=== PATIENT | male | born 1975 | race Hispanic/Latino ===

== ENCOUNTER 2017-03-29 20:42 | Inpatient (IN) | payer BC, OTHER ==
[2017-03-29 20:48] VITALS: BMI 32.7
--- NOTE | 2017-03-29 21:07 | ED PDOC ---
Arrival/HPI - General Chief Complaint: Psychiatric Evaluation Time Seen by Provider: 03/29/17 20:47 Historian: Patient - History of Present Illness Narrative History of Present Illness (Text): 03/29/17 21:00 Paco Bran is a 41 year old male who presents to the Emergency department transferred from [facility] for depression. Patient was medically cleared at previous institution today and accepted for psychiatric admission. Patient denies any fever, chills, chest pain, shortness of breath, nausea, vomiting, diarrhea, urinary symptoms, back pain, neck pain, headache, dizziness, or any other complaints. Symptom Onset: Gradual Symptom Course: Unchanged Activities at Onset: Light Context: Other (Transferred from [facility]) Past Medical History - Provider Review Nursing Documentation Reviewed: Yes - Infectious Disease Hx of Infectious Diseases: None - Psychiatric Hx Psychophysiologic Disorder: Yes Hx Depression: Yes Hx Substance Use: No - Anesthesia Hx Anesthesia: No Hx Anesthesia Reactions: No Hx Malignant Hyperthermia: No Family/Social History - Physician Review Nursing Documentation Reviewed: Yes Family/Social History: Unknown Family HX Smoking Status: Light Smoker < 10 Cigarettes Daily Hx Alcohol Use: Yes Frequency of alcohol use: Socially Hx Substance Use: No Allergies/Home Meds Allergies/Adverse Reactions: Allergies No Known Allergies Allergy (Unverified 03/29/17 21:01) Review of Systems - Physician Review All systems were reviewed & negative as marked: Yes - Review of Systems Constitutional: Normal. absent: Fevers Eyes: Normal ENT: Normal Respiratory: Normal. absent: SOB, Cough Cardiovascular: Normal. absent: Chest Pain Gastrointestinal: Normal. absent: Abdominal Pain, Diarrhea, Nausea, Vomiting Genitourinary Male: Normal. absent: Dysuria, Frequency, Hematuria, Urinary Output Changes Musculoskeletal: Normal. absent: Back Pain, Neck Pain Skin: Normal. absent: Rash Neurological: Normal. absent: Headache, Dizziness Endocrine: Normal Hemo/Lymphatic: Normal Psychiatric: Normal Physical Exam Vital Signs Reviewed: Yes Vital Signs Temp Pulse Resp BP Pulse Ox 03/29/17 20:52 99.3 F 115 H 18 143/89 98 Temperature: Afebrile Blood Pressure: Normal Pulse: Regular Respiratory Rate: Normal Appearance: Positive for: Well-Appearing, Non-Toxic, Comfortable Pain Distress: None Mental Status: Positive for: Alert and Oriented X 3 - Systems Exam Head: Present: Atraumatic, Normocephalic Pupils: Present: PERRL Extroacular Muscles: Present: EOMI Conjunctiva: Present: Normal Mouth: Present: Moist Mucous Membranes Neck: Present: Normal Range of Motion Respiratory/Chest: Present: Clear to Auscultation, Good Air Exchange. No: Respiratory Distress, Accessory Muscle Use Cardiovascular: Present: Regular Rate and Rhythm, Normal S1, S2. No: Murmurs Abdomen: Present: Normal Bowel Sounds. No: Tenderness, Distention, Peritoneal Signs Back: Present: Normal Inspection Upper Extremity: Present: Normal Inspection. No: Cyanosis, Edema Lower Extremity: Present: Normal Inspection. No: Edema Neurological: Present: GCS=15, CN II-XII Intact, Speech Normal Skin: Present: Warm, Dry, Normal Color. No: Rashes Psychiatric: Present: Alert, Oriented x 3, Normal Insight, Normal Concentration. No: Normal Affect (Flat affect) Medical Decision Making ED Course and Treatment: 03/29/17 21:00 Impression: 41 year old male transferred from [facility] for depression. Differential Diagnosis included but are not limited to: depression Plan: -- Admission to [facility] Progress Notes: Patient was medically cleared at previous institution and accepted for psychiatric admission. Pt will be admitted to [facility] for depression under Dr. Simon's service. - Medication Orders Current Medication Orders: Acetaminophen (Tylenol 325mg Tab) 650 mg PO Q4H PRN PRN Reason: Pain, Mild (1-3) Al Hydrox/Mg Hydrox/Simethicone (Maalox Plus 30 Ml) 30 ml PO DAILY PRN PRN Reason: Upset Stomach Haloperidol (Haldol) 3 mg PO Q6 PRN; Protocol PRN Reason: Psychosis Last Admin: 03/29/17 22:34 Dose: 3 mg Lorazepam (Ativan) 1 mg PO HS ALLYSSA PRN Reason: Protocol Last Admin: 03/29/17 22:34 Dose: 1 mg Lorazepam (Ativan) 1 mg PO Q6 PRN PRN Reason: Severe Agitation Magnesium Hydroxide (Milk Of Magnesia) 30 ml PO DAILY PRN PRN Reason: Constipation Quetiapine Fumarate (Seroquel) 100 mg PO HS ALLYSSA Last Admin: 03/29/17 22:34 Dose: 100 mg - Scribe Statement The provider has reviewed the documentation as recorded by the Jayashreeibamita Navarro All medical record entries made by the Scribamita were at my direction and personally dictated by me. I have reviewed the chart and agree that the record accurately reflects my personal performance of the history, physical exam, medical decision making, and the department course for this patient. I have also personally directed, reviewed, and agree with the discharge instructions and disposition. Disposition/Present on Arrival - Present on Arrival Any Indicators Present on Arrival: No History of DVT/PE: No History of Uncontrolled Diabetes: No Urinary Catheter: No History of Decub. Ulcer: No History Surgical Site Infection Following: None - Disposition Have Diagnosis and Disposition been Completed?: Yes Diagnosis: Depression Disposition: HOSPITALIZED Disposition Time: 22:00 Condition: GOOD
[2017-03-29] MEDS ORDERED: Alum-Mag Hydrox-Simethicone Susp (30 mL) PO PRN (22:36)
[2017-03-29] MEDS ORDERED: Magnesium Hydroxide Susp 30 ml UD PO PRN (22:36)
--- NOTE | 2017-03-30 00:30 | PCM.BM ---
Treatment Plan Problems - Problems identified on initial assessmt auditory hallucinations Date Initiated: 03/30/17 Time Initiated: 00:27 Assessment reference: NA Status: Active poor sleep Date Initiated: 03/30/17 Time Initiated: 00:28 Assessment reference: NA Status: Active Treatment assets and liabiliti Patient Assests: ADL independent, good support system Patient Liabilities: relationship conflicts - Milieu Protocol Maintain good personal hygiene: daily Encourage regular showers, daily Remind patient to perform daily oral care, daily Assist patient to perform ADL's Conduct patient checks and document Observation sheet: Q15 minutes Maintain personal safety: daily Educate patient to report safety concerns to staff, daily Monitor environment for contraband/sharps Medication safety: Monitor for expected outcome, potential side effects: daily, Assess barriers to learning: daily, Assess readiness for medication education: every shift Family Contact Family involvement: Family/SO is involved Family contact: Patient agrees to contact Family contact name: Fanny rangel [phone] - Goals for Treatment Patient goals for treatment: I want to get my medications on board Discharge/Continuing Care - Education Needs Education Needs: Patient Medication, Patient Diagnosis/Disease Process, Patient Coping Skills, Patient Anger Management skills, Patient Activities of Daily Living, Patient Personal Hygiene/Grooming - Discharge Discharge Criteria: Tolerates medication w/o severe side effects, Normal sleep pattern, Ability to care for self Discharge to:: Home
[2017-03-30 07:59] LABS: BLOOD UREA NITROGEN 10 mg/dL (7-21); CALCIUM 9.2 mg/dL (8.4-10.5); CARBON DIOXIDE 26 mmol/L (21-33); CHLORIDE 106 mmol/L (98-107); CHOLESTEROL 192 mg/dL (130-200); GFR AFRICAN-AMERICAN > 60; GLUCOSE,RANDOM 101 mg/dL (70-110); POTASSIUM 3.8 mmol/L (3.6-5.0); SODIUM 143 mmol/L (132-148)
--- NOTE | 2017-03-30 11:24 | PCM.PSYCH ---
Initial Psychiatric Evaluation - Initial Psychiatric Evaluation Legal Status: Capacity Chief Complaint (in patient's own words): "I am lonely and depressed" History of Present Illness and Precipitating Events: Patient is a single 41 year old male with a history of Schizoaffective disorder , prior admissions to [facility], in treatment with Dr. Whitaker and prescribed Seroquel 300 mg HS and Ativan 2 mg HS who presented to [facility]'s ER with symptoms of increasing lability, poor sleep, depression and aggression x1 month. I reviewed [facility] records and met with patient bedside. [facility] records indicate that patient has been increasingly campbell and verbally aggressive with increased rage over the past month. Patient has no history of violence however mother has become increasingly fearful for her safety. [facility] records also indicate that patient has not been compliant with Ativan in the AM. I spoke with patient at bedside and he reports increased depression and hopelessness over the past 1-2 months. Endorses low energy, anhedonia, moodiness , irritability, helplessness, poor sleep and anxiety. Patient reports that he is frustrated because of life circumstances. Specifically indicates that he is very lonely and fears that he will be single forever. He feels that this is his main stressor. He does not want to discuss other stressors at this time. [facility] records indicate that patient was upset with his psychiatrist who told patient he could not work. [facility] records also indicate that patient wished that he and his adoptive mother were . Presently patient denies any suicidal thoughts or thoughts to harm others. His affect is constricted and irritable. I contacted support. Responses are relevant and goal directed. He is not hallucinating. I discussed different treatment options including initiating an antidepressant and patient defers on changing his medications at this time. His insight and judgment are considered to be fair/poor PSYCHIATRIC HISTORY Patient is in psychiatric outpatient treatment with Dr. Whitaker. He is prescribed Seroquel 300 mg HS and Ativan 2 mg AM+HS. Patient denied prior suicide attempts to this provider however [facility] records indicate that patient tried to choke himself as a teenager. Per [facility] records, patient reported a prior admission to [facility] about four years ago (though this could not be confirmed by checking [facility] records). Patients adoptive mother reported previous admissions to [facility] between 1989 and 1999. Per [facility] records, patient's biological mother was reported to have spent some time at [facility] SOCIAL HISTORY Born in raised in [place]. Patient was adopted at the age of [age] years old. He lives with his adoptive parents. His father is currently at [facility] for medical issues however should be returning home on Thursday. Patient graduate high school and he is unemployed. Patient denies any history of arrests, and drug or alcohol issues. Patient indicates that he used to smoke a couple cigarettes a day but quit recently. He was educated about the morbidity and mortality risks of continued tobacco use. [facility] records indicate that patient does not have a history of violence but can be aggressive and punch/kick bartlett when he is angry. Current Medications: Active Medications Generic Name Dose Route Start Last Admin Trade Name Freq PRN Reason Stop Dose Admin Acetaminophen 650 mg 03/29/17 22:36 Tylenol 325mg Tab PO Q4H PRN Pain, Mild (1-3) Al Hydrox/Mg Hydrox/Simethicone 30 ml 03/29/17 22:36 Maalox Plus 30 Ml PO DAILY PRN Upset Stomach Haloperidol 3 mg 03/29/17 22:13 03/30/17 09:03 Haldol PO 3 mg Q6 PRN Administration Psychosis Protocol Lorazepam 1 mg 03/29/17 22:15 03/29/17 22:34 Ativan PO 1 mg HS ALLYSSA Administration Protocol Lorazepam 1 mg 03/29/17 22:13 03/30/17 09:03 Ativan PO 1 mg Q6 PRN Administration Severe Agitation Magnesium Hydroxide 30 ml 03/29/17 22:36 Milk Of Magnesia PO DAILY PRN Constipation Quetiapine Fumarate 100 mg 03/29/17 22:15 03/29/17 22:34 Seroquel PO 100 mg HS ALLYSSA Administration Past Psychiatric History - Past Psychiatric History Pertinent Medical Hx (Current Medical&Sleep Prob, Allergies): Allergies Allergy/AdvReac Type Severity Reaction Status Date / Time No Known Allergies Allergy Unverified 03/29/17 21:01 LORazepam 2 mg PO AMHS 03/30/17 QUEtiapine [Seroquel XR] 300 mg PO HS 03/30/17 Mental Status Examination - Personal Presentation Personal Presentation: Looks stated age - Affect Affect: Constricted - Motor Activity Motor Activity: Psychomotor Agitation - Reliability in Providing Information Reliability in Providing Information: Fair - Speech Speech: Organized - Mood Mood: Depressed, Anxious - Obsessions/Compulsions Obsessions: No Compulsions: No - Cognitive Functions Orientation: Person, Place, Situation Sensorium: Alert Estimate of Intelligence: Average Judgement: Imparied, as evidence by: Poor judgement - Risk Risk: Suicidal, Diminished functioning - Strength & Assets Inventory Strength & Assets Inventory: Family support DSM 5 DX - DSM 5 DSM 5 Diagnosis: Schizoaffective Disorder - Recommended/Plan of Treatment Treatment Recommendations and Plan of Treatment: * Group, milieu and supportive treatment * Seroquel XR 300 mg po qevening for mood and impulse control. * Ativan 2 mg AM+HS for anxiety. * Consider initiating an antidepressant for mood symptoms if patient agrees. At this time he defers on this treatment option. * Awaiting medical follow-up. * Vital signs noted below: Selected Entries 03/29/17 20:52 Temperature 99.3 F Pulse Rate 115 H Respiratory 18 Rate Blood Pressure 143/89 O2 Sat by Pulse 98 Oximetry [facility] LAB RESULTS SUMMARIZED 03/29/17 CBC WNL except for PLTS =124L Potassium=3L CREATININE=0.7L Anion Gap=21H Calcium=8.5L LFTS WNL Urinalysis WNL UDS NEGATIVE BAL NEGATIVE [facility] FLOOR LABS NOTED BELOW Laboratory Results - last 24 hr 03/30/17 03/30/17 03/30/17 07:30 07:30 07:30 Sodium 143 Potassium 3.8 Chloride 106 Carbon Dioxide 26 Anion Gap 15 BUN 10 Creatinine 0.7 Est GFR ( Amer) > 60 Est GFR (Non-Af Amer) > 60 Random Glucose 101 Hemoglobin A1c 5.7 Calcium 9.2 Triglycerides 192 H Cholesterol 192 LDL Cholesterol Direct 135 H HDL Cholesterol 25 L TSH 3rd Generation 3.96 - Smoking Cessation Smoking Cessation Initiated: No
[2017-03-30 12:38] LABS: HEMATOCRIT 43.3 % (42.0-52.0); MEAN CELL VOLUME 91.5 fL (80.0-105.0); MEAN CORPUSCULAR HEMOGLOBIN 31.5 pg (25.0-35.0); MEAN CORPUSCULAR HGB CONC 34.4 g/dl (31.0-37.0); MEAN PLATELET VOLUME 11.9 fl (7.0-11.0); RED CELL DISTRIBUTION WIDTH 12.4 % (11.5-14.5); WHITE BLOOD COUNT 6.6 10^3/ul (4.5-11.0)
[2017-03-30] MEDS: QUEtiapine 300 mg XR Tab PO SCH (17:15)
--- NOTE | 2017-03-30 19:08 | CP.PCM.PN ---
<Mandie Munguia - Last Filed: 03/30/17 19:05> Subjective - Date & Time of Evaluation Date of Evaluation: 03/30/17 Time of Evaluation: 19:05 - Subjective Subjective: HPI: 41yo male with history of depression transferred to [facility] from [facility] for depression. Pt was medically cleared at [facility] prior to transport. Pt states he was yelling and cursing at his mother, with whom he lives, and she brought him to the hospital. Pt reports he has a doctor he sees regularly who prescribes his psychiatric medications. PMHx: depression PSHx: none FHx: no known family history Social: tobacco use (<10 cigarettes per day), social drinker, denies illicit drugs. Unemployed, lives with mother. Allergies: NKDA This morning, pt is anxious, keeps his hands over his eyes, but is cooperative and answers question appropriately. Pt currently denies any suicidal or homicidal thoughts. Pt says he was unable to sleep last night. He is annoyed about having blood drawn repetitively. He denies MEZA, vision changes, fevers, chills, SOB, CP, abd pain, dysuria, constipation, diarrhea. Per nurse, pt has been psychotic overnight. Objective - Vital Signs/Intake and Output Vital Signs (last 24 hours): Temp Pulse Resp BP Pulse Ox 99.3 F 100 H 18 150/91 H 98 03/29/17 20:52 03/30/17 16:19 03/29/17 20:52 03/30/17 16:19 03/29/17 20:52 - Medications Medications: Current Medications Acetaminophen (Tylenol 325mg Tab) 650 mg PO Q4H PRN PRN Reason: Pain, Mild (1-3) Al Hydrox/Mg Hydrox/Simethicone (Maalox Plus 30 Ml) 30 ml PO DAILY PRN PRN Reason: Upset Stomach Haloperidol (Haldol) 3 mg PO Q6 PRN; Protocol PRN Reason: Psychosis Last Admin: 03/30/17 09:03 Dose: 3 mg Lorazepam (Ativan) 1 mg PO Q6 PRN PRN Reason: Severe Agitation Last Admin: 03/30/17 09:03 Dose: 1 mg Lorazepam (Ativan) 2 mg PO AMHS ALLYSSA PRN Reason: Protocol Magnesium Hydroxide (Milk Of Magnesia) 30 ml PO DAILY PRN PRN Reason: Constipation Last Admin: 03/30/17 16:50 Dose: 30 ml Nicotine (Nicoderm Cq) 1 patch TD DAILY ALLYSSA Last Admin: 03/30/17 17:15 Dose: 1 patch Quetiapine Fumarate (Seroquel) 100 mg PO HS ALLYSSA Last Admin: 03/29/17 22:34 Dose: 100 mg Quetiapine Fumarate (Seroquel Xr) 300 mg PO 1700 ALLYSSA PRN Reason: Protocol Last Admin: 03/30/17 17:15 Dose: 300 mg - Labs Labs: 03/30/17 12:15 03/30/17 07:30 - Constitutional Appears: Non-toxic, No Acute Distress, Agitated - Head Exam Head Exam: ATRAUMATIC, NORMOCEPHALIC - Eye Exam Eye Exam: EOMI - Respiratory Exam Respiratory Exam: Clear to Ausculation Bilateral, Stridor. absent: Rales, Rhonchi, Wheezes - Cardiovascular Exam Cardiovascular Exam: RRR, +S1, +S2. absent: Bradycardia, Tachycardia, JVD - GI/Abdominal Exam GI & Abdominal Exam: Soft, Normal Bowel Sounds. absent: Tenderness, Organomegaly - Extremities Exam Extremities Exam: absent: Pedal Edema - Neurological Exam Neurological Exam: Alert, Awake, Oriented x3 - Psychiatric Exam Psychiatric exam: Agitated, Anxious. absent: Homicidal Ideation, Suicidal Ideation - Skin Skin Exam: Dry, Intact, Normal Color, Warm Assessment and Plan - Assessment and Plan (Free Text) Assessment: 41 year old male admitted for depression. Plan: 1.Psychosis/depression .-Continue management per psychiatry 2.Thrombocytopenia (resolved) -PLT 150 today -F/U on CBC tomorrow 3.Elevated blood pressure -discuss lifestyle modification. Should f/u outpatient if pressure remains elevated -Heart healthy diet, monitor BP daily -TSH 3.96 4.Hyperlipidemia a-LDL 135 TG 192 TChol 192 HDL 25 -No reoported hx of CAD, hyperlipidemia -Recommend lifestyle modifications. No statin therapy recommended at this time. F/U outpatient 5.Tobacco Abuse -Nicotine patch -counseled on smoking cessation. Case seen, examined and reviewed with Attending. At this time, no acute medical management is needed. We recommend pt f/u with PMD of choice upon discharge. We will f/u CBC results, will sign off at this time. Mandie Munguia PGY1 <Sheehan,Irfana B - Last Filed: 03/31/17 08:46> Objective - Vital Signs/Intake and Output Vital Signs (last 24 hours): Temp Pulse Resp BP Pulse Ox 97.9 F 85 20 142/78 98 03/31/17 07:48 03/31/17 07:48 03/31/17 07:48 03/31/17 07:48 03/29/17 20:52 - Medications Medications: Current Medications Acetaminophen (Tylenol 325mg Tab) 650 mg PO Q4H PRN PRN Reason: Pain, Mild (1-3) Al Hydrox/Mg Hydrox/Simethicone (Maalox Plus 30 Ml) 30 ml PO DAILY PRN PRN Reason: Upset Stomach Haloperidol (Haldol) 3 mg PO Q6 PRN; Protocol PRN Reason: Psychosis Last Admin: 03/30/17 21:30 Dose: 3 mg Lorazepam (Ativan) 1 mg PO Q6 PRN PRN Reason: Severe Agitation Last Admin: 03/30/17 09:03 Dose: 1 mg Lorazepam (Ativan) 2 mg PO AMHS ALLYSSA PRN Reason: Protocol Last Admin: 03/30/17 21:25 Dose: 2 mg Magnesium Hydroxide (Milk Of Magnesia) 30 ml PO DAILY PRN PRN Reason: Constipation Last Admin: 03/30/17 16:50 Dose: 30 ml Nicotine (Nicoderm Cq) 1 patch TD DAILY ALLYSSA Last Admin: 03/30/17 17:15 Dose: 1 patch Quetiapine Fumarate (Seroquel) 100 mg PO HS ALLYSSA Last Admin: 03/30/17 21:25 Dose: 100 mg Quetiapine Fumarate (Seroquel Xr) 300 mg PO 1700 ALLYSSA PRN Reason: Protocol Last Admin: 03/30/17 17:15 Dose: 300 mg - Labs Labs: 03/30/17 12:15 03/30/17 07:30 Attending/Attestation - Attestation I have personally seen and examined this patient.: Yes I have fully participated in the care of the patient.: Yes I have reviewed all pertinent clinical information, including history, physical exam and plan: Yes Notes (Text): I have seen and examined patient at bedside. Agree with the note above with the following additions/ exceptions: Briefly this is 41 year old male who was admitted for depression. TSH is normal. Manage as per psych. Labs were reviewed. BP slightly elevated. Will change diet to heart healthy. LDL 135. Life style modifications recommended. Tobacco cessation counselling provided. Upon discharge patient will follow up with PMD of choice. Thanks for providing us the opportunity to take care of the patient. Upon discharge patient will follow up with PMD of choice. Dr Isabel Sheehan.
--- NOTE | 2017-03-31 15:14 | PCM.PYCHPN ---
Psychiatric Progress Note - Psychiatric Progress Note Patient seen today, length of contact: 30 minutes Patient Chief Complaint: "everything gets into me, I will try her best not to curse at my mother, I want to be discharged, I cannot stay here any longer" Problems Identified/Issues Discussed: Suicide/ homicide prevention, past psychiatric h/o, current psychiatric symptoms , medical problems, risk/benefits and alternatives of medications, medications compliance, coping strategies, substance abuse h/o, relapse prevention, importance of follow up with psychiatrist and therapist, discharge plan. Medical Problems: patient reported being healthy, obese, slightly elevated BP, was seen by MD Diagnostic Results: 03/30/17 12:15 03/30/17 07:30 Lab Results 03/30/17 12:15: WBC 6.6, RBC 4.73, Hgb 14.9, Hct 43.3, MCV 91.5, MCH 31.5, MCHC 34.4, RDW 12.4, Plt Count 150, MPV 11.9 H 03/30/17 07:30: TSH 3rd Generation 3.96 03/30/17 07:30: Hemoglobin A1c 5.7 03/30/17 07:30: Sodium 143, Potassium 3.8, Chloride 106, Carbon Dioxide 26, Anion Gap 15, BUN 10, Creatinine 0.7, Est GFR ( Amer) > 60, Est GFR (Non- Af Amer) > 60, Random Glucose 101, Calcium 9.2, Triglycerides 192 H, Cholesterol 192, LDL Cholesterol Direct 135 H, HDL Cholesterol 25 L Vital Signs Temp Pulse Resp BP Pulse Ox 03/31/17 07:48 97.9 F 85 20 142/78 03/30/17 16:19 100 H 150/91 H 03/29/17 20:52 99.3 F 115 H 18 143/89 98 DSM 5 Symptoms Update: as per 's evaluation: Patient is a single 41 year old male with a history of Schizoaffective disorder , prior admissions to [facility], in treatment with Dr. Whitaker and prescribed Seroquel 300 mg HS and Ativan 2 mg HS who presented to [facility]'s ER with symptoms of increasing lability, poor sleep, depression and aggression x1 month. previous record reviewed, meds reviewed, discussed with RN. Patient was seen together with lazarus, patient presented to be weird, psychotic, internally preoccupied, irritable, angry, yes no answers, patient obviously has restlessness, was constantly moving while laying in bed, seems to have akathisia , will increase ativan. pt is angry, irritable, as per RN report was talking to himself, was masturbating openly in the unit, needs to have constant redirection, at the same time pt has some improvement with his presentation. Presently patient denies any suicidal thoughts or thoughts to harm others, "I was cursing at my mother, but I will try not to do it any longer". [facility] records indicate that patient does not have a history of violence but can be aggressive and punch/kick bartlett when he is angry. pt tolerates meds well. pt has fair appetite. Impression: schizoaffective disorder Medication Change: Yes (ativan increased, seroquel increased, depakote initiated ) Medical Record Reviewed: Yes Consults ordered or reviewed: medical consult appreciated Mental Status Examination - Cognitive Function Orientation: Person, Place, Situation Memory: Intact Attention: Poor Concentration: Poor Association: Loose Fund of Knowledge: Poor - Mood Mood: Depressed (irritable angry), Anxious - Affect Affect: Constricted, Blunted - Speech Speech: Slurred (underproductive) - Formal Thought Process Formal Thought Process: Other (thought process disorganized) - Suicidal Ideation Suicidal Ideation: No - Homicidal Ideation Homicidal Ideation: No Goal/Treatment Plan - Goal/Treatment Plan Need for Continued Stay: Remain at risks for inpatient hospitalization, Severe depression anxiety, Discharge may exacerbated symptoms, Severe functional impairment Progress Toward Problem(s) and Goals/Treatment Plan: milieu, structure, supportive therapy Depakote will be started at 500 mg twice a day for more stabilization Ativan will be increased to 2 mg 3 times a day for akathisia, anxiety, mood stabilization Seroquel will be increased to 300 mg twice a day for psychotic symptoms and most stabilization When necessary medications Patient was seen by medical team Patient submitted 48 hour notice today, most likely patient is to have screening process to be initiated by [facility], [place], this filing writer will reevaluate patient at the morning time in order to make that decision We'll continue monitoring hot blast worker evaluation Collaterals from the family will be appreciated. We'll monitor closely Estimated Date of D/C: 04/06/17 (monitor closely)
[2017-03-31] MEDS: QUEtiapine 300 mg XR Tab PO SCH (16:23)
[2017-03-31] MEDS: Divalproex 500 mg DR(BID formulation) PO SCH (22:03)
[2017-04-01] MEDS: Divalproex 500 mg DR(BID formulation) PO SCH ×2 (09:04→21:52)
--- NOTE | 2017-04-01 10:42 | RAD ---
HISTORY: clearance for screening COMPARISON: No prior. FINDINGS: LUNGS: No active pulmonary disease. PLEURA: No significant pleural effusion identified, no pneumothorax apparent. CARDIOVASCULAR: Normal. OSSEOUS STRUCTURES: No significant abnormalities. VISUALIZED UPPER ABDOMEN: Normal. OTHER FINDINGS: None. IMPRESSION: No active disease.
--- NOTE | 2017-04-01 14:50 | PCM.PYCHPN ---
Psychiatric Progress Note - Psychiatric Progress Note Patient seen today, length of contact: 30 minutes Patient Chief Complaint: "everything gets into me, I don't want to speak to screeners, I will prefer to stay here..." Problems Identified/Issues Discussed: Suicide/ homicide prevention, past psychiatric h/o, current psychiatric symptoms , medical problems, risk/benefits and alternatives of medications, medications compliance, coping strategies, substance abuse h/o, relapse prevention, importance of follow up with psychiatrist and therapist, discharge plan. Medical Problems: patient reported being healthy, obese, slightly elevated BP, was seen by MD Diagnostic Results: 03/30/17 12:15 03/30/17 07:30 Lab Results 03/30/17 12:15: WBC 6.6, RBC 4.73, Hgb 14.9, Hct 43.3, MCV 91.5, MCH 31.5, MCHC 34.4, RDW 12.4, Plt Count 150, MPV 11.9 H 03/30/17 07:30: TSH 3rd Generation 3.96 03/30/17 07:30: Hemoglobin A1c 5.7 03/30/17 07:30: Sodium 143, Potassium 3.8, Chloride 106, Carbon Dioxide 26, Anion Gap 15, BUN 10, Creatinine 0.7, Est GFR ( Amer) > 60, Est GFR (Non- Af Amer) > 60, Random Glucose 101, Calcium 9.2, Triglycerides 192 H, Cholesterol 192, LDL Cholesterol Direct 135 H, HDL Cholesterol 25 L Vital Signs Temp Pulse Resp BP Pulse Ox 03/31/17 07:48 97.9 F 85 20 142/78 03/30/17 16:19 100 H 150/91 H 03/29/17 20:52 99.3 F 115 H 18 143/89 98 Temp Pulse Resp BP Pulse Ox 97.3 F L 71 20 127/94 H 98 04/01/17 07:28 04/01/17 07:28 04/01/17 07:28 04/01/17 07:28 03/29/17 20:52 DSM 5 Symptoms Update: Patient is a single 41 year old male with a history of Schizoaffective disorder , prior admissions to [facility], in treatment with Dr. Whitaker and prescribed Seroquel 300 mg HS and Ativan 2 mg HS who presented to [facility]'s ER with symptoms of increasing lability, poor sleep, depression and aggression x1 month. previous record reviewed, meds reviewed, discussed with RN. pt submitted 48hr notice, requesting d/c, today pt was educated about screening process, pt decided to stay in the hospital and complete tx. Patient was seen next to the Nursing station, patient presented to be weird, psychotic, internally preoccupied, irritable, angry, yes no answers, patient obviously has restlessness. pt gave permission to speak to his mother, SW will call for collaterals. at the time of the admission pt was angry, irritable, as per RN report was talking to himself, was masturbating openly in the unit, now has some improvement with his presentation. Presently patient denies any suicidal thoughts or thoughts to harm others, "I was cursing at my mother, but I will try not to do it any longer". [facility] records indicate that patient does not have a history of violence but can be aggressive and punch/kick bartlett when he is angry. pt tolerates meds well. pt has fair appetite. Impression: schizoaffective disorder Medication Change: Yes (ativan increased, seroquel increased, depakote initiated ) Medical Record Reviewed: Yes Consults ordered or reviewed: medical consult appreciated Mental Status Examination - Cognitive Function Orientation: Person, Place, Situation Memory: Intact Attention: Poor Concentration: Poor Association: Loose Fund of Knowledge: Poor - Mood Mood: Depressed (irritable angry), Anxious - Affect Affect: Constricted, Blunted - Speech Speech: Slurred (underproductive) - Formal Thought Process Formal Thought Process: Other (thought process disorganized) - Suicidal Ideation Suicidal Ideation: No - Homicidal Ideation Homicidal Ideation: No Goal/Treatment Plan - Goal/Treatment Plan Need for Continued Stay: Remain at risks for inpatient hospitalization, Severe depression anxiety, Discharge may exacerbated symptoms, Severe functional impairment Progress Toward Problem(s) and Goals/Treatment Plan: milieu, structure, supportive therapy Depakote 500 mg twice a day for more stabilization Ativan will be increased to 2 mg 3 times a day for akathisia, anxiety, mood stabilization Seroquel 300 mg twice a day for psychotic symptoms and most stabilization When necessary medications Patient was seen by medical team Patient submitted 48 hour notice yesterday, but rescinded today We'll continue monitoring binding bench worker evaluation Collaterals from the family will be appreciated. We'll monitor closely Estimated Date of D/C: 04/06/17 (monitor closely)
[2017-04-01] MEDS: QUEtiapine 300 mg XR Tab PO SCH (16:55)
[2017-04-02] MEDS: Divalproex 500 mg DR(BID formulation) PO SCH ×2 (10:02→22:17)
[2017-04-02] MEDS ORDERED: QUEtiapine 300 mg XR Tab PO SCH ×3 (14:07→22:00)
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
[2017-04-02] MEDS: QUEtiapine 200 mg XR Tab PO SCH (16:59)
[2017-04-03] MEDS: Divalproex 500 mg DR(BID formulation) PO SCH ×3 (10:13→22:05)
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
[2017-04-03] MEDS: QUEtiapine 200 mg XR Tab PO SCH (18:36)
--- NOTE | 2017-04-04 09:04 | PCM.PYCHPN ---
Psychiatric Progress Note - Psychiatric Progress Note Patient seen today, length of contact: 25 minutes Patient Chief Complaint: "I am still campbell" Problems Identified/Issues Discussed: I reviewed recent notes and met with patient at bedside. He is alert and oriented. Grooming is fair. Patient reports he feels a little bit better and more hopeful. However his affect is flat and he appears preoccupied. Indicates that he still feels campbell. Patient continues to deny having any hallucinations and he has not been observed responding to internal stimuli on the unit. Delusions were not elicited. His thought process is coherent and responses are relevant to questioning. Patient continues to deny any new side effects, discomfort or pain. Staff notes indicate that he appears a little brighter and more spontaneous with communication. A little less anxious and better groomed. Nonetheless he remains seclusive and withdrawn with minimal socialization. There were no behavioral issues overnight. Diagnostic Results: Schizoaffective Disorder Medication Change: No ( ) Medical Record Reviewed: Yes Mental Status Examination - Cognitive Function Orientation: Person, Place, Situation Memory: Intact Attention: Poor (some improvement) Concentration: Poor (some improvement) Association: Loose Fund of Knowledge: Poor - Mood Mood: Depressed ("a little better, still campbell"), Anxious - Affect Affect: Constricted, Blunted - Speech Speech: Slurred (underproductive, low volume) - Formal Thought Process Formal Thought Process: Other (as per staff pt was talking to sealing, internally preoccupied, but dneied v/a/t hallucinaitons) - Suicidal Ideation Suicidal Ideation: No - Homicidal Ideation Homicidal Ideation: No Goal/Treatment Plan - Goal/Treatment Plan Need for Continued Stay: Remain at risks for inpatient hospitalization, Severe depression anxiety, Discharge may exacerbated symptoms, Severe functional impairment Progress Toward Problem(s) and Goals/Treatment Plan: * c/w current tx and plan * No new weekend labs * Vital signs noted below: Selected Entries 04/03/17 04/03/17 07:42 16:00 Temperature 97.6 F Pulse Rate 78 73 Respiratory 20 Rate Blood Pressure 121/86 133/79 [facility] LABS NOTED BELOW Laboratory Results - last 24 hr 03/30/17 03/30/17 03/30/17 07:30 07:30 07:30 Sodium 143 Potassium 3.8 Chloride 106 Carbon Dioxide 26 Anion Gap 15 BUN 10 Creatinine 0.7 Est GFR ( Amer) > 60 Est GFR (Non-Af Amer) > 60 Random Glucose 101 Hemoglobin A1c 5.7 Calcium 9.2 Triglycerides 192 H Cholesterol 192 LDL Cholesterol Direct 135 H HDL Cholesterol 25 L TSH 3rd Generation 3.96 Estimated Date of D/C: 04/06/17 (monitor closely)
[2017-04-04] MEDS: Divalproex 500 mg DR(BID formulation) PO SCH ×3 (09:22→21:24)
[2017-04-04] MEDS: QUEtiapine 200 mg XR Tab PO SCH (18:25)
[2017-04-05] MEDS: Divalproex 500 mg DR(BID formulation) PO SCH ×3 (09:04→21:45)
--- NOTE | 2017-04-05 09:07 | PCM.PYCHPN ---
Psychiatric Progress Note - Psychiatric Progress Note Patient seen today, length of contact: 25 minutes Patient Chief Complaint: "I am campbell" Problems Identified/Issues Discussed: I reviewed recent notes and met with patient at bedside. He is alert and oriented. Grooming is fair. Patient reports he feels a little bit better and more hopeful "meds might be helping". Still worried about getting a girlfriend. His affect remains flat, unhappy and preoccupied. Indicates that he still feels campbell. Patient continues to deny having any hallucinations and he has not been observed responding to internal stimuli on the unit. Delusions were not elicited. His thought process is fairly coherent and responses are relevant to questioning though brief and non elaborative. Presently patient denies any discomfort or pain. He is tolerating his medications well. Staff notes indicate that he appears a little brighter and more spontaneous with communication. A little less anxious and better groomed. Nonetheless he still remains seclusive and withdrawn with minimal socialization. Rambles at times. There were no behavioral issues over the weekend. Diagnostic Results: Schizoaffective Disorder Medication Change: No ( ) Medical Record Reviewed: Yes Mental Status Examination - Cognitive Function Orientation: Person, Place, Situation Memory: Intact Attention: Poor (some improvement) Concentration: Poor (some improvement) Association: Loose Fund of Knowledge: Poor - Mood Mood: Depressed ("a little better, still campbell"), Anxious - Affect Affect: Constricted, Blunted - Speech Speech: Slurred (underproductive, low volume) - Formal Thought Process Formal Thought Process: Other (as per staff pt was talking to sealing, internally preoccupied, but dneied v/a/t hallucinaitons) - Suicidal Ideation Suicidal Ideation: No - Homicidal Ideation Homicidal Ideation: No Goal/Treatment Plan - Goal/Treatment Plan Need for Continued Stay: Remain at risks for inpatient hospitalization, Severe depression anxiety, Discharge may exacerbated symptoms, Severe functional impairment Progress Toward Problem(s) and Goals/Treatment Plan: * c/w current tx and plan * No new weekend labs * Vital signs noted below: Selected Entries 04/03/17 04/04/17 16:00 06:43 Temperature 98.4 F Pulse Rate 73 82 Respiratory 19 Rate Blood Pressure 133/79 132/85 [facility] FLOOR LABS NOTED BELOW Laboratory Results - last 24 hr 03/30/17 03/30/17 03/30/17 07:30 07:30 07:30 Sodium 143 Potassium 3.8 Chloride 106 Carbon Dioxide 26 Anion Gap 15 BUN 10 Creatinine 0.7 Est GFR ( Amer) > 60 Est GFR (Non-Af Amer) > 60 Random Glucose 101 Hemoglobin A1c 5.7 Calcium 9.2 Triglycerides 192 H Cholesterol 192 LDL Cholesterol Direct 135 H HDL Cholesterol 25 L TSH 3rd Generation 3.96 Estimated Date of D/C: 04/06/17 (monitor closely)
[2017-04-05] MEDS: QUEtiapine 200 mg XR Tab PO SCH (18:18)
[2017-04-06] MEDS: Divalproex 500 mg DR(BID formulation) PO SCH (10:08)
--- NOTE | 2017-04-06 15:42 | PCM.PYCHPN ---
Psychiatric Progress Note - Psychiatric Progress Note Patient seen today, length of contact: 30min Patient Chief Complaint: "I am feeling fine, I want to go home" Problems Identified/Issues Discussed: Suicide/ homicide prevention, past psychiatric h/o, current psychiatric symptoms , medical problems, risk/benefits and alternatives of medications, medications compliance, coping strategies, substance abuse h/o, relapse prevention, importance of follow up with psychiatrist and therapist, discharge plan. Medical Problems: patient reported being healthy, obese, slightly elevated BP, was seen by MD Diagnostic Results: 03/30/17 12:15 03/30/17 07:30 Lab Results 03/30/17 12:15: WBC 6.6, RBC 4.73, Hgb 14.9, Hct 43.3, MCV 91.5, MCH 31.5, MCHC 34.4, RDW 12.4, Plt Count 150, MPV 11.9 H 03/30/17 07:30: TSH 3rd Generation 3.96 03/30/17 07:30: Hemoglobin A1c 5.7 03/30/17 07:30: Sodium 143, Potassium 3.8, Chloride 106, Carbon Dioxide 26, Anion Gap 15, BUN 10, Creatinine 0.7, Est GFR ( Amer) > 60, Est GFR (Non- Af Amer) > 60, Random Glucose 101, Calcium 9.2, Triglycerides 192 H, Cholesterol 192, LDL Cholesterol Direct 135 H, HDL Cholesterol 25 L Vital Signs Temp Pulse Resp BP Pulse Ox 03/31/17 07:48 97.9 F 85 20 142/78 03/30/17 16:19 100 H 150/91 H 03/29/17 20:52 99.3 F 115 H 18 143/89 98 Temp Pulse Resp BP Pulse Ox 97.3 F L 71 20 127/94 H 98 04/01/17 07:28 04/01/17 07:28 04/01/17 07:28 04/01/17 07:28 03/29/17 20:52 Temp Pulse Resp BP Pulse Ox 97.7 F 76 20 117/82 98 04/02/17 07:30 04/02/17 07:30 04/02/17 07:30 04/02/17 07:30 03/29/17 20:52 Temp Pulse Resp BP Pulse Ox 97.6 F 78 20 121/86 98 04/03/17 07:42 07/28/17 07:42 04/03/17 07:42 04/03/17 07:42 03/29/17 20:52 Temp Pulse Resp BP Pulse Ox 97.8 F 68 20 126/86 98 04/06/17 07:54 04/06/17 07:54 04/06/17 07:54 04/06/17 07:54 03/29/17 20:52 Laboratory Results - last 24 hr 04/06/17 07:00 Valproic Acid 105 H* DSM 5 Symptoms Update: Patient is a single 41 year old male with a history of Schizoaffective disorder , prior admissions to [facility] in treatment with Dr. Whitaker and prescribed Seroquel 300 mg HS and Ativan 2 mg HS who presented to [facility] ER with symptoms of increasing lability, poor sleep, depression and aggression x1 month. pt was seen in his room, pt presented with much improved personal hygiene, still low profile, but pt is not acutely psychotic, not talking to self, participate in unit activities. depakote level was elevated, will decrease dose to 500mg am and 750hs. d/w pt's mother, she is coming for family meeting at 11am tomorrow, as per mother "my son is doing much better". Presently patient denies any suicidal thoughts or thoughts to harm others pt tolerates meds well, AIMS 0, no EPS. pt has fair appetite. as per RN report pt was observed talking to the sealing, starring and internally preoccupied, but affect and interaction with staff better. Impression: schizoaffective disorder Medication Change: Yes (decrease depakote) Medical Record Reviewed: Yes Consults ordered or reviewed: medical consult appreciated Mental Status Examination - Cognitive Function Orientation: Person, Place, Situation Memory: Intact Attention: Poor (some improvement) Concentration: Poor (some improvement) Association: Loose Fund of Knowledge: Poor - Mood Mood: Depressed ("a little better, still campbell"), Anxious - Affect Affect: Constricted, Blunted - Speech Speech: Slurred (underproductive, low volume) - Formal Thought Process Formal Thought Process: Other (as per staff pt was talking to sealing, internally preoccupied, but dneied v/a/t hallucinaitons) - Suicidal Ideation Suicidal Ideation: No - Homicidal Ideation Homicidal Ideation: No Goal/Treatment Plan - Goal/Treatment Plan Need for Continued Stay: Remain at risks for inpatient hospitalization, Severe depression anxiety, Discharge may exacerbated symptoms, Severe functional impairment Progress Toward Problem(s) and Goals/Treatment Plan: milieu, structure, supportive therapy will decrease Depakote 500 mg daily and 750mg hs depakote level was elevated 04/06/17 Ativan 2 mg 3 times a day for akathisia, anxiety, mood stabilization Seroquel 400 mg twice a day for psychotic symptoms and most stabilization paxil 20mg hs for depression/anxiety/?ptsd When necessary medications Patient was seen by medical team We'll continue monitoring bridge maintenance worker evaluation Collaterals from the family will be appreciated. We'll monitor closely as per , pt was decompensating lately, refused to take meds, was doing well on depakote, invega. collaterals from mother appreciated possible d/c tomorrow Estimated Date of D/C: 04/07/17 (monitor closely)
[2017-04-06] MEDS: QUEtiapine 200 mg XR Tab PO SCH (16:56)
[2017-04-06] MEDS ORDERED: Divalproex 250 mg DR (BID formulation) PO SCH (22:00)
[2017-04-07 06:41] VITALS: BP 121/83; PULSE 66; RESP 18; TEMP 97.2; O2SAT 100
[2017-04-07] MEDS ORDERED: Divalproex 500 mg DR(BID formulation) PO SCH (08:00)
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
== END 2017-04-07 12:32 | disposition home or self-care (01) | DRG 885 ==
LOC: ED 20:42 → ERH 21:01 → PSYC 22:05
PROVIDERS: ADMIT Psychiatry & Neurology Psychiatry; ATTEND Psychiatry & Neurology Psychiatry
PROC: GZ3ZZZZ Medication Management (ICD-10-PCS; principal; 2017-03-29)
DX: F25.9 Schizoaffective disorder, unspecified (principal); Z91.19 Patient's noncompliance with other medical treatment and regimen; F32.9 Major depressive disorder, single episode, unspecified; F43.10 Post-traumatic stress disorder, unspecified; E78.5 Hyperlipidemia, unspecified; E66.9 Obesity, unspecified; Z68.32 Body mass index [BMI] 32.0-32.9, adult